=== PATIENT | female | born 1980 ===

== ENCOUNTER → 2021-07-23 | Day surgery (SDC) | payer OTHER | END | disposition home or self-care (01) | LOC: ADM 07-18 13:15 → AMB-ENDOS 09:06 | PROVIDERS: ATTEND Colon & Rectal Surgery | DX: D12.2 Benign neoplasm of ascending colon (principal); K64.8 Other hemorrhoids; Z20.822 Contact with and (suspected) exposure to COVID-19; Z12.11 Encounter for screening for malignant neoplasm of colon ==

== ENCOUNTER 2022-08-11 08:25 | Outpatient (CLI) | payer OTHER | END 2022-08-11 09:52 | disposition home or self-care (01) | LOC: PRENATAL 08:25 | PROVIDERS: ATTEND Obstetrics & Gynecology Maternal & Fetal Medicine | DX: O36.80X0 Pregnancy with inconclusive fetal viability, not applicable or unspecified (principal); O09.519 Supervision of elderly primigravida, unspecified trimester; O09.819 Supervision of pregnancy resulting from assisted reproductive technology, unspecified trimester; Z36.0 Encounter for antenatal screening for chromosomal anomalies; Z3A.11 11 weeks gestation of pregnancy ==

== ENCOUNTER 2022-10-08 08:10 | Outpatient (CLI) | payer OTHER | END 2022-10-08 09:25 | disposition home or self-care (01) | LOC: PRENATAL 08:10 | PROVIDERS: ATTEND Obstetrics & Gynecology Maternal & Fetal Medicine | DX: O35.3XX0 Maternal care for (suspected) damage to fetus from viral disease in mother, not applicable or unspecified (principal); O09.519 Supervision of elderly primigravida, unspecified trimester; O09.819 Supervision of pregnancy resulting from assisted reproductive technology, unspecified trimester ==

== ENCOUNTER 2023-02-18 07:23 | Inpatient (IN) | payer OTHER ==
[~2023-02-18] VITALS: Ht 165.1 cm; Wt 84.4 kg
[2023-02-18] MEDS ORDERED: PRENATAL CAPLE1 EAC1 PO (09:15)
[2023-02-18] MEDS ORDERED: CHILDREN'S ASPI81 MG PO (09:16)
[2023-02-21] MEDS ORDERED: DOCUSATE SODIU100 MG PO (12:53)
[2023-02-21] MEDS ORDERED: IBUPROFEN600 MG PO (12:53)
== END 2023-02-21 14:35 | disposition home or self-care (01) | DRG 788 ==
LOC: LDR 07:23 → O/R 12:46 → OB/GYN 14:26
PROVIDERS: ADMIT Obstetrics & Gynecology; ATTEND Obstetrics & Gynecology
PROC: 4A1HXCZ Monitoring of Products of Conception, Cardiac Rate, External Approach (ICD-10-PCS; 2023-02-18)
PROC: 10D00Z1 Extraction of Products of Conception, Low, Open Approach (ICD-10-PCS; principal; 2023-02-18 12:00)
DX: O82 Encounter for cesarean delivery without indication (principal); Z3A.39 39 weeks gestation of pregnancy; Z37.0 Single live birth; Z20.822 Contact with and (suspected) exposure to COVID-19